=== PATIENT | female | born 1955 | race Caucasian/White ===

== ENCOUNTER → 2025-01-18 10:09 | Outpatient (REF) | payer MEDICARE, SELFPAY ==
[2025-01-18 11:37] LABS: Hematocrit 39.1 % (37.0-47.0); Hemoglobin 12.8 g/dL (12.0-16.0); Mean Corp Hgb Conc. 32.7 g/dL (33.0-37.0); Mean Corpuscular Volume 93.8 fL (81.0-99.0); Nucleated Red Blood Cells % 0 %; Platelet Count 261 10^3/uL (130-400); Red Cell Dist. Width 12.8 % (11.5-14.5)
[2025-01-18 12:02] LABS: ALT (SGPT) 24 U/L (0-35); AST (SGOT) 22 U/L (14-36); Albumin 4.3 g/dl (3.5-5.0); Alkaline Phosphatase 56 U/L (38-126); Blood Urea Nitrogen 17 mg/dl (7-17); Calcium 9.6 mg/dl (8.4-10.2); Carbon Dioxide 30 mmol/L (22-30); Chloride 106 mmol/L (98-107); Glucose 89 mg/dl (70-99); HDL Cholesterol 70 mg/dl; LDL Cholesterol, Calculated 170 mg/dl; Potassium 4.5 mmol/L (3.5-5.1); Sodium 140 mmol/L (135-145); Total Protein 7.1 g/dl (6.3-8.2); Very Low Density Lipoprotein 15 mg/dl (0-30); eGFR > 60.00
[2025-01-18 13:09] LABS: Folate 18.8 ng/ml (2.76-20); Vitamin B12 > 1000 pg/ml (239-931)
[2025-01-20 13:31] LABS: Lyme Antibody Screen, EIA Negative (Negative)
== END ==
LOC: REG 10:09
PROVIDERS: ATTENDING PHYSICIAN Family Medicine
DX: M79.644 Pain in right finger(s) (principal); G62.9 Polyneuropathy, unspecified; M79.604 Pain in right leg; M79.605 Pain in left leg; E78.00 Pure hypercholesterolemia, unspecified
CPT/HCPCS: 36415; 73130; 80053; 80061; 82607; 82746; 84443; 85025; 86618

== ENCOUNTER → 2025-05-20 13:14 | Outpatient (REF) | payer MEDICARE, SELFPAY ==
[2025-05-20 15:37] LABS: Free T3 3.56 pg/ml (2.77-5.27)
[2025-05-20 15:51] LABS: TSH 1.08 uIU/ml (0.47-4.68)
[2025-05-20 16:27] LABS: Folate > 20.0 ng/ml (2.76-20); Vitamin B12 815 pg/ml (239-931)
[2025-05-22 21:07] LABS: Thyroglobulin 18.1 ng/mL (1.3-31.8); Thyroglobulin Antibodies <1.5 IU/mL (0.0-4.0)
== END ==
LOC: REG 13:14
PROVIDERS: ATTENDING PHYSICIAN Nurse Practitioner Family; FAMILY PHYSICIAN Family Medicine
DX: G62.9 Polyneuropathy, unspecified (principal)
CPT/HCPCS: 82607; 82746; 84432; 84439; 84443; 84481; 86376; 86800